=== PATIENT | female | born 1980 | race Caucasian/White ===

== ENCOUNTER → 2019-10-18 | Day surgery (SDC) | payer SELFPAY ==
--- NOTE | 2019-10-18 11:51 | RAD REPORT ---
EXAM DESCRIPTION: US - Breast Core BX w/US Guidance - 10/18/2019 10:33 am CLINICAL HISTORY: ICD R 92.8 COMPARISON: Not available TECHNIQUE: Ultrasound demonstrates a 2.5 centimeter mass within the outer left breast. The risks, benefits alternatives to the procedure were explained to the patient and informed consent obtained. Skin and subcutaneous tissues anesthetized with lidocaine. Under sonographic guidance, three 14 gauge vacuum assisted core biopsies of the mass within the outer left breast obtained. 2 centimeter specimens taken. Materials given to pathology. Subsequently a localizing clip was placed into the mass. Patient experienced no immediate complication IMPRESSION: Vacuum assisted core biopsies of the left breast mass
== END ==
LOC: DS 09:45
PROVIDERS: ATTEND Nurse Practitioner
PROC: 0HBU3ZX Excision of Left Breast, Percutaneous Approach, Diagnostic (ICD-10-PCS; principal; 2019-10-18)
DX: N64.89 Other specified disorders of breast (principal); R92.8 Other abnormal and inconclusive findings on diagnostic imaging of breast
CPT/HCPCS: 19083; 88305